=== PATIENT | male | born 1980 | race African-American/Black ===

== ENCOUNTER 2023-06-14 18:08 | Emergency (ER) | payer OTHER ==
[~2023-06-14] VITALS: Ht 177.8 cm; Wt 84.6 kg
[2023-06-14] MEDS ORDERED: NS 1,000 ML IV SCH (18:15)
[2023-06-14] MEDS ORDERED: CHARCOAL ACTIVATED LIQUID 25GM/120ML BTL PO ONE (18:15)
[2023-06-14 18:33] VITALS: O2SAT 100
[2023-06-14 18:37] LABS: ABG BASE EXCESS -2.3 (-2.0-2.0); ABG HCO3 22.1 MMOL/L (22.0-26.0); ABG O2 SATURATION 90.2 % (95.0-99.0); ABG PARTIAL PRESSURE CO2 37.1 mmHg (35.0-45.0); ABG PARTIAL PRESSURE O2 56.6 mmHg (75.0-100.0); ABG STANDARD HCO3 22.4 MMOL/L. (22.0-26.0); ABG TOTAL CO2 23.2 MMOL/L (22.0-29.0); ABG pH (ARTERIAL) 7.393 UNITS (7.350-7.450)
[2023-06-14 18:53] LABS: BASO % 0.3 % (0.0-1.0); EOS % 0.4 % (0.0-3.0); HEMATOCRIT 44.8 % (42.0-52.0); HEMOGLOBIN 14.4 g/dl (13.5-17.5); LYMPH # 1.9 10^3/uL (1.5-5.0); LYMPH % 23.8 % (24.0-44.0); MEAN CORPUSCULAR HEMOGLOBIN 26.9 pg (27.0-33.0); MEAN CORPUSCULAR HGB CONC 32.1 g/dl (32.0-36.5); MEAN CORPUSCULAR VOLUME 83.7 fl (80.0-96.0); MONO # 0.7 10^3/uL (0.0-0.8); MONO % 8.4 % (2.0-8.0); NEUTROPHILS # 5.3 10^3/uL (1.5-8.5); NEUTROPHILS % 66.8 % (36.0-66.0); PLATELET COUNT, AUTOMATED 271 10^3/uL (150-450); RED BLOOD COUNT 5.35 10^6/uL (4.30-6.10)
[2023-06-14 19:18] LABS: ETHYL ALCOHOL (ETHANOL) < 0.003 % (0.000-0.010)
[2023-06-14 19:19] LABS: SALICYLATE LEVEL < 3.0 MG/DL (<30)
[2023-06-14 19:20] LABS: ACETAMINOPHEN LEVEL < 2.0 UG/ML (10.0-20.0); ALBUMIN 4.2 G/DL (3.2-5.2); ALKALINE PHOSPHATASE 72 U/L (46-116); ALT/SGPT 31 U/L (7.0-40); AST/SGOT 32 U/L (<34); BILIRUBIN,DIRECT 0.2 MG/DL (<0.4); BILIRUBIN,TOTAL 0.5 MG/DL (0.3-1.2); BLOOD UREA NITROGEN 11 MG/DL (9-23); CALCIUM LEVEL 9.5 MG/DL (8.5-10.1); CARBON DIOXIDE LEVEL 26 MMOL/L (20-31); CHLORIDE LEVEL 105 MMOL/L (98-107); CREATININE FOR GFR 1.22 MG/DL (0.70-1.30); GLOMERULAR FILTRATION RATE > 60.0 (>60); GLUCOSE, FASTING 125 MG/DL (60-100); POTASSIUM SERUM 4.1 MMOL/L (3.5-5.1); SODIUM LEVEL 141 MMOL/L (136-145); TOTAL PROTEIN 6.9 G/DL (5.7-8.2)
[2023-06-14 19:22] LABS: THYROID STIMULATING HORMONE 0.998 uIU/ML (0.55-4.78)
[2023-06-14 19:26] LABS: CPK CREATINE PHOSPHOKINASE 444 U/L (46-171)
[2023-06-14 19:38] LABS: OSMOLALITY SERUM 288 MOSM/KG (275-295)
[2023-06-14 19:40] LABS: AMPHETAMINES LEVEL URINE NEGATIVE (NEGATIVE); BARBITURATES URINE NEGATIVE (NEGATIVE); BENZODIAZEPINES URINE NEGATIVE (NEGATIVE); CANNABINOIDS URINE NEGATIVE (NEGATIVE); COCAINE METABOLITE URINE NEGATIVE (NEGATIVE); METHADONE URINE NEGATIVE (NEGATIVE); OPIATES URINE NEGATIVE (NEGATIVE); PHENCYCLIDINE URINE NEGATIVE (NEGATIVE)
[2023-06-14 20:59] LABS: VENOUS BASE EXCESS -2.8 (-2.0-2.0); VENOUS HCO3 23.3 MMOL/L (23.0-27.0); VENOUS O2 SATURATION 77.8 % (60.0-80.0); VENOUS PARTIAL PRESSURE CO2 45.2 mmHg (38.0-50.0); VENOUS PARTIAL PRESSURE O2 41.4 mmHg (30.0-50.0); VENOUS STANDARD HCO3 21.7 MMOL/L; VENOUS TOTAL CO2 24.7 MMOL/L (24.0-28.0)
[2023-06-14 21:39] LABS: BLOOD UREA NITROGEN 10 MG/DL (9-23); CALCIUM LEVEL 8.7 MG/DL (8.5-10.1); CARBON DIOXIDE LEVEL 22 MMOL/L (20-31); CHLORIDE LEVEL 109 MMOL/L (98-107); CREATININE FOR GFR 1.08 MG/DL (0.70-1.30); GLOMERULAR FILTRATION RATE > 60.0 (>60); GLUCOSE, FASTING 132 MG/DL (60-100); POTASSIUM SERUM 3.8 MMOL/L (3.5-5.1); SALICYLATE LEVEL < 3.0 MG/DL (<30); SODIUM LEVEL 143 MMOL/L (136-145)
[2023-06-14 23:14] LABS: VENOUS BASE EXCESS -4.5 (-2.0-2.0); VENOUS O2 SATURATION 97.1 % (60.0-80.0); VENOUS PARTIAL PRESSURE CO2 40.1 mmHg (38.0-50.0); VENOUS PH 7.337 UNITS (7.330-7.430); VENOUS STANDARD HCO3 20.8 MMOL/L; VENOUS TOTAL CO2 22.2 MMOL/L (24.0-28.0)
[2023-06-14 23:45] LABS: BLOOD UREA NITROGEN 10 MG/DL (9-23); CARBON DIOXIDE LEVEL 22 MMOL/L (20-31); CHLORIDE LEVEL 110 MMOL/L (98-107); CREATININE FOR GFR 1.03 MG/DL (0.70-1.30); GLOMERULAR FILTRATION RATE > 60.0 (>60); GLUCOSE, FASTING 161 MG/DL (60-100); POTASSIUM SERUM 3.6 MMOL/L (3.5-5.1); SALICYLATE LEVEL < 3.0 MG/DL (<30); SODIUM LEVEL 141 MMOL/L (136-145)
[2023-06-15 02:27] VITALS: BP 160/90; TEMP 98.6; O2SAT 100
[2023-06-15] MEDS ORDERED: ALBU6.7H6 INH (16:22)
[2023-06-15] MEDS ORDERED: ADVA115A INH (16:22)
[2023-06-15] MEDS ORDERED: METF500T13 PO (16:22)
[2023-06-15] MEDS ORDERED: ATOR40TA75 PO (16:22)
[2023-06-15] MEDS ORDERED: LISI10TA22 PO (16:22)
[2023-06-15] MEDS ORDERED: IBUP1TAB6 PO (16:58)
[2023-06-15] MEDS ORDERED: ASPI-161 PO (16:58)
== END 2023-06-15 02:57 | disposition home or self-care (01) ==
LOC: EDBD 18:08 → M ED 18:08
DX: R45.851 Suicidal ideations (principal); Z76.5 Malingerer [conscious simulation]; I10 Essential (primary) hypertension; E78.5 Hyperlipidemia, unspecified

== ENCOUNTER 2023-06-15 16:10 | Emergency (ER) | payer OTHER ==
[~2023-06-15] VITALS: Ht 177.8 cm; Wt 82.5 kg
[2023-06-15] MEDS ORDERED: ATOR40TA75 PO (16:22)
[2023-06-15] MEDS ORDERED: LISI10TA22 PO (16:22)
[2023-06-15] MEDS ORDERED: ADVA115A INH (16:22)
[2023-06-15] MEDS ORDERED: ALBU6.7H6 INH (16:22)
[2023-06-15] MEDS ORDERED: METF500T13 PO (16:22)
[2023-06-15 16:54] LABS: BASO % 0.2 % (0.0-1.0); EOS % 0.4 % (0.0-3.0); HEMATOCRIT 43.7 % (42.0-52.0); LYMPH % 18.2 % (24.0-44.0); MEAN CORPUSCULAR VOLUME 84.2 fl (80.0-96.0); MONO % 9.3 % (2.0-8.0); NEUTROPHILS # 7.7 10^3/uL (1.5-8.5); NEUTROPHILS % 71.6 % (36.0-66.0); PLATELET COUNT, AUTOMATED 284 10^3/uL (150-450); RED BLOOD COUNT 5.19 10^6/uL (4.30-6.10); WHITE BLOOD COUNT 10.7 10^3/uL (4.0-10.0)
[2023-06-15] MEDS ORDERED: MED REC IN PROGRESS XX SCH (16:55)
[2023-06-15] MEDS ORDERED: IBUP1TAB6 PO (16:58)
[2023-06-15] MEDS ORDERED: ASPI-161 PO (16:58)
[2023-06-15] MEDS ORDERED: HOME MED LIST COMPLETE! XX SCH (17:00)
[2023-06-15 17:11] LABS: INR 1.09; PROTHROMBIN TIME 13.8 SECONDS (12.5-14.5)
[2023-06-15 17:12] LABS: PARTIAL THROMBOPLASTIN TIME 30.1 SECONDS (24.8-34.2)
[2023-06-15 17:16] VITALS: TEMP 98.3
[2023-06-15 17:17] LABS: LIPASE 29 U/L (12-53)
[2023-06-15 17:18] LABS: CK-MB VALUE MASS 1.9 NG/ML (<3.6)
[2023-06-15 17:21] LABS: THYROID STIMULATING HORMONE 1.145 uIU/ML (0.55-4.78)
[2023-06-15 17:22] LABS: ALBUMIN 3.8 G/DL (3.2-5.2); ALKALINE PHOSPHATASE 64 U/L (46-116); ALT/SGPT 28 U/L (7.0-40); AST/SGOT 23 U/L (<34); BILIRUBIN,DIRECT 0.2 MG/DL (<0.4); BILIRUBIN,TOTAL 0.5 MG/DL (0.3-1.2); BLOOD UREA NITROGEN 8 MG/DL (9-23); CARBON DIOXIDE LEVEL 26 MMOL/L (20-31); CHLORIDE LEVEL 112 MMOL/L (98-107); CPK CREATINE PHOSPHOKINASE 339 U/L (46-171); CREATININE FOR GFR 1.37 MG/DL (0.70-1.30); GLOMERULAR FILTRATION RATE > 60.0 (>60); GLUCOSE, FASTING 83 MG/DL (60-100); MB/CK RELATIVE INDEX 0.56 (< OR =4); POTASSIUM SERUM 4.6 MMOL/L (3.5-5.1); SODIUM LEVEL 145 MMOL/L (136-145); TOTAL PROTEIN 6.7 G/DL (5.7-8.2)
[2023-06-15 17:30] LABS: RSV AMPLIFICATION NEGATIVE (NEGATIVE)
[2023-06-15] MEDS ORDERED: KETOROLAC 30 MG/ML 1ML VIAL IV ONE ×2 (18:00→20:05)
[2023-06-15] MEDS ORDERED: GABAPENTIN 100 MG CAP PO ONE (18:00)
[2023-06-15 18:32] LABS: CK-MB VALUE MASS 1.7 NG/ML (<3.6)
[2023-06-15 18:38] LABS: MB/CK RELATIVE INDEX 0.52 (< OR =4)
[2023-06-15] MEDS ORDERED: ISOVUE-370 76% 100ML VIAL As Ordered ONE (20:09)
[2023-06-15 20:11] LABS: AMPHETAMINES LEVEL URINE NEGATIVE (NEGATIVE); BARBITURATES URINE NEGATIVE (NEGATIVE); BENZODIAZEPINES URINE NEGATIVE (NEGATIVE); COCAINE METABOLITE URINE NEGATIVE (NEGATIVE); METHADONE URINE NEGATIVE (NEGATIVE); PHENCYCLIDINE URINE NEGATIVE (NEGATIVE)
[2023-06-15 20:12] LABS: CANNABINOIDS URINE NEGATIVE (NEGATIVE); OPIATES URINE NEGATIVE (NEGATIVE)
[2023-06-15 21:25] VITALS: O2SAT 100
[2023-06-15 21:30] VITALS: BP 137/89
== END 2023-06-15 21:51 | disposition home or self-care (01) ==
LOC: M ED 16:10
DX: R07.89 Other chest pain (principal); Z79.899 Other long term (current) drug therapy; Z79.51 Long term (current) use of inhaled steroids; Z79.82 Long term (current) use of aspirin
CPT/HCPCS: 70450; 71045; 71275; 72125; 80048; 80076; 80307; 82550; 82553; 83690; 83880; 84443; 84484; 85025; 85610; 85730; 87631; 93005; 93041; 94760; 96374; 99285; J1885; Q9967